=== PATIENT | female | born 1995 | race Caucasian/White ===

== ENCOUNTER 2017-07-06 14:54 | Emergency (ER) | payer OTHER, SELFPAY ==
[2017-07-06 15:20] VITALS: BP 151/90; PULSE 128; RESP 20; TEMP 36.8; O2SAT 97; BMI 41.5
--- NOTE | 2017-07-06 15:42 | HMH.EDUTC ---
[facility] [place] Dis[place] Clinical Impression: URI (upper respiratory infection) Qualifiers: URI type: unspecified URI Qualified Code(s): J06.9 - Acute upper respiratory infection, unspecified Disposition: Home, Self-Care Condition on Discharge: Good Instructions: Strep Throat, Sore Throat Additional Instructions: * Monitor Temp. Tylenol and/or Ibuprofen as needed. ER if fever is no less than 101 despite alternating Tylenol and Ibuprofen * Encourage fluids, water, Gatorade, powerade, pedialyte if infant/toddler/or child * Warm salt water gargles for throat irritation *Warm fluids *Sore throat lozenges *Sleep elevated *humidifier or vaporizer Lots of rest Increase fluids, water, Gatorade, powerade *Flonase 2 sprays each nostril daily but may take 2-3 days to notice improvement with it *Bromfed may cause drowsiness. Know how it effect you or your child. Before driving, caring for small children or sending your child to school *Your throat swab was sent to lab for culture. Those results area typically sent to your primary care physician. Be sure to follow up in 2-3 days if no improvement so they can review those results and treat if necessary If you dont have primary care I recommend you get one, but in the mean time you will have to return to a walk in clinic Follow up IMMEDIATELY for new or worsening of symptoms OR no noticeable improvement over the next 48-72 hours. 911 immediately for any life threatening symptoms such as chest pain or difficulty breathing Prescriptions: Brompheniramine/Pseudoephed/Dm [Bromfed DM Cough Syrup 5mL] 10 ml PO Q4HP PRN #350 ml PRN Reason: Cough Azithromycin [Z-Rc 250mg Tab] 250 mg PO UD DOSE PK #6 tab Fluticasone Propionate [Flonase 50mcg nasal spray 16gm] 2 spr NS DAILY #1 bottle predniSONE [Prednisone 5mg Tab Dose-Pack] 5 mg PO UD DOSE PK #21 pack Referrals: Candis Bay APRN [Primary Care Provider] - Forms: Work/School Release Time of Disposition: 15:56 Medical Decision Making - Medical Records Medical records reviewed: Yes: I reviewed the patient's medical records. - Alfredo Inquiry Pt receiving controlled substance: No Alfredo was queried for this patient: No Vital Signs: 07/06/17 15:20 Temperature 98.2 F Temperature Source Temporal Artery Scan Pulse Rate [Right Brachial] 128 H Respiratory Rate 20 Blood Pressure [Right Arm] 151/90 Blood Pressure Mean [Right Arm] 110 Blood Pressure Source [Right Arm] Automatic Cuff Blood Pressure Position [Right Arm] Sitting 02 Sat by Pulse Oximetry 97 Oxygen Delivery Method Room Air - Lab Data Lab results reviewed: Yes: I reviewed the patient's lab results. - Reevaluation(s) Time: 15:52 Reevaluation #1: Patient had rapid strep test showed negative result however patients throat presented like that of strep Tonsils red, swollen with mild exudate noted therefore will treat patient for strep even thought negative rapid test result [facility] [place] HPI - General Stated complaint: sore throat ear ache fever Time Seen by Provider: 07/06/17 15:40 Mode of Arrival: Family Vehicle Source of Information: Patient, Parent(s) Limitations: No Limitations Description of Symptoms (Recalled from Triage Doc. by RN): C/O SORE THROAT, FEVER AND BILATERAL EAR PAIN HEENT Symptoms (Recalled from RN notes): Yes Resp Symptoms (Recalled from RN notes): Yes Skin Symptoms (Recalled from RN notes): No MS Symptoms (Recalled from RN notes): No Functional Status (Recalled from RN notes): N/A - History of Present Illness Provider Complaint: Patient state that she has had sore throat, cough, bilateral ear pain and nasal congestion along with low grade fever since Friday Mother state that she has been laying around and complaining that her throat hurts State that she use to have strep throat frequently and she works at a [employer] so she was worried that she may have caught something - Related Data Home Medications Medication Instructions Recorded Terrence Benavides
--- NOTE | 2017-07-06 15:48 | ED_ITS ---
[facility] [place] Clinical Impression: URI (upper respiratory infection) Qualifiers: URI type: unspecified URI Qualified Code(s): J06.9 - Acute upper respiratory infection, unspecified Disposition: Home, Self-Care Condition on Discharge: Good Instructions: Strep Throat, Sore Throat Additional Instructions: * Monitor Temp. Tylenol and/or Ibuprofen as needed. ER if fever is no less than 101 despite alternating Tylenol and Ibuprofen * Encourage fluids, water, Gatorade, powerade, pedialyte if infant/toddler/or child * Warm salt water gargles for throat irritation *Warm fluids *Sore throat lozenges *Sleep elevated *humidifier or vaporizer Lots of rest Increase fluids, water, Gatorade, powerade *Flonase 2 sprays each nostril daily but may take 2-3 days to notice improvement with it *Bromfed may cause drowsiness. Know how it effect you or your child. Before driving, caring for small children or sending your child to school *Your throat swab was sent to lab for culture. Those results area typically sent to your primary care physician. Be sure to follow up in 2-3 days if no improvement so they can review those results and treat if necessary If you don? t have primary care I recommend you get one, but in the mean time you will have to return to a walk in clinic Follow up IMMEDIATELY for new or worsening of symptoms OR no noticeable improvement over the next 48-72 hours. 911 immediately for any life threatening symptoms such as chest pain or difficulty breathing Prescriptions: Brompheniramine/Pseudoephed/Dm [Bromfed DM Cough Syrup 5mL] 10 ml PO Q4HP PRN # 350 ml PRN Reason: Cough Azithromycin [Z-Rc 250mg Tab] 250 mg PO UD DOSE PK #6 tab Fluticasone Propionate [Flonase 50mcg nasal spray 16gm] 2 spr NS DAILY #1 bottle predniSONE [Prednisone 5mg Tab Dose-Pack] 5 mg PO UD DOSE PK #21 pack Referrals: Candis Bay APRN [Primary Care Provider] - Forms: Work/School Release Time of Disposition: 15:56 Medical Decision Making - Medical Records Medical records reviewed: Yes: I reviewed the patient's medical records. - Alfredo Inquiry Pt receiving controlled substance: No Alfredo was queried for this patient: No Vital Signs: 07/06/17 15:20 Temperature 98.2 F Temperature Source Temporal Artery Scan Pulse Rate [Right Brachial] 128 H Respiratory Rate 20 Blood Pressure [Right Arm] 151/90 Blood Pressure Mean [Right Arm] 110 Blood Pressure Source [Right Arm] Automatic Cuff Blood Pressure Position [Right Arm] Sitting 02 Sat by Pulse Oximetry 97 Oxygen Delivery Method Room Air - Lab Data Lab results reviewed: Yes: I reviewed the patient's lab results. - Reevaluation(s) Time: 15:52 Reevaluation #1: Patient had rapid strep test showed negative result however patients throat presented like that of strep Tonsils red, swollen with mild exudate noted therefore will treat patient for strep even thought negative rapid test result [facility] [place] - General Stated complaint: sore throat ear ache fever Time Seen by Provider: 07/06/17 15:40 Mode of Arrival: Family Vehicle Source of Information: Patient, Parent(s) Limitations: No Limitations Description of Symptoms (Recalled from Triage Doc. by RN): C/O SORE THROAT, FEVER AND BILATERAL EAR PAIN HEENT Symptoms (Recalled from RN notes): Yes Resp Symptoms (Recalled from RN notes): Yes Skin Symptoms (Recalled from RN notes): No MS Symptoms (Recalled from RN notes): No Functional Status (Recalled from RN notes): N/A
[2017-07-06 15:54] LABS: UTC Influenza A Antigen Negative (Negative); UTC Influenza B Antigen Negative (Negative); UTC Strep Screen (Rapid) Negative (Negative)
[2017-07-06 15:58] VITALS: BP 150/88; PULSE 120; RESP 20; TEMP 36.8; O2SAT 98
== END 2017-07-06 16:02 | disposition home or self-care (01) ==
PROVIDERS: Emergency Provider Nurse Practitioner; Family Provider Nurse Practitioner; PCP Nurse Practitioner
DX: J06.9 Acute upper respiratory infection, unspecified (principal)
CPT/HCPCS: 87804; 87880; 99202

== ENCOUNTER → 2017-08-12 10:36 | Outpatient (POV) | payer OTHER, SELFPAY | PROVIDERS: Visit Provider Otolaryngology | DX: Z00.00 Encounter for general adult medical examination without abnormal findings (principal) ==

== ENCOUNTER → 2018-10-06 16:07 | Outpatient (CLI) | payer OTHER, SELFPAY ==
[2018-10-13 18:24] LABS: Ammonium acid urate 10 % (.); Calcium phosphate 65 % (.)
[2018-10-14 17:47] LABS: Specimen Type Comment: (.)
== END ==
PROVIDERS: Visit Provider Urology
DX: N20.0 Calculus of kidney (principal)
CPT/HCPCS: 82370

== ENCOUNTER → 2019-03-09 11:49 | Outpatient (CLI) | payer OTHER, SELFPAY ==
--- NOTE | 2019-03-09 11:53 | XR_ITS ---
PROCEDURE: XR KUB CLINICAL INDICATION: KIDNEY STONE Follow-up kidney stones COMPARISON: ABDPELWO CT abdomen pelvis wo con from 09/29/2018 FINDINGS: Gas pattern-The bowel gas pattern is unremarkable. No obvious obstruction. Calcifications-No abnormal calcifications are evident. No obvious renal or ureteral calculi. Bones-No acute bony anomalies evident. IMPRESSION: No acute findings. Dictated by: Michael Dyer MD 03/09/2019 15:32 Electronically signed by Michael Dyer MD in [place] 03/09/2019 15:32
== END ==
PROVIDERS: PCP Family Medicine; Visit Provider Urology
DX: N20.0 Calculus of kidney (principal)
CPT/HCPCS: 74018

== ENCOUNTER → 2019-03-26 12:45 | Outpatient (CLI) | payer OTHER, SELFPAY ==
--- NOTE | 2019-03-26 12:48 | CT_ITS ---
PROCEDURE: CT ABDOMEN PELVIS WO CON CLINICAL INDICATION: flank pain Bilateral flank pain the COMPARISON: ABDPELWO CT abdomen pelvis wo con from 09/29/2018 TECHNIQUE: Axial images obtained with sagittal and coronal reformats. All CT scans at the facility use one or more dose reduction, viz: automated exposure control, ma/kV adjustment per patient size (including targeted exams where dose is matched to indication, i.e. head), or iterative reconstruction technique. FINDINGS: LOWER THORAX: No acute finding ABDOMEN & PELVIS: The liver, gallbladder, adrenal glands and pancreas have an unremarkable appearance. There is mild splenomegaly at 14 cm. There is a nonobstructing 4 mm stone in the mid polar region of the right kidney. No hydronephrosis. No ureteral calculi. No evidence of appendicitis or diverticulitis. There is a 3 cm right ovarian cyst. No pelvic mass abnormal fluid collection or focal inflammatory change of the pelvis. No acute bony anomalies. IMPRESSION: 1. Nonobstructing right nephrolithiasis. 2. 3 cm right ovarian cyst Dictated by: Michael Dyer MD 03/26/2019 17:32 Electronically signed by Michael Dyer MD in [place] 03/27/2019 08:22
== END ==
PROVIDERS: PCP Nurse Practitioner; Visit Provider Urology
DX: N20.0 Calculus of kidney (principal)
CPT/HCPCS: 74176

== ENCOUNTER → 2020-01-17 09:44 | Outpatient (CLI) | payer MEDICAID, SELFPAY ==
--- NOTE | 2020-01-17 09:48 | XR_ITS ---
PROCEDURE: XR ANKLE WT BEARING LT MIN 3V CLINICAL INDICATION: ankle pain Foot pain COMPARISON: CR XR FOOT WT BEARING RT 3V from 01/17/2020 CR XR FOOT WT BEARING LT 3V from 01/17/2020 FINDINGS: No fracture or dislocation. No lytic or blastic change. There is normal mineralization. The joint spaces are well-preserved. No significant degenerative/arthritic changes. No erosive changes evident. Other findings:There is a prominent os trigonum. Type 1 os navicularis. IMPRESSION: No acute findings. Dictated by: Michael Dyer MD 01/17/2020 10:30 Michael Dyer MD in [place] 01/17/2020 10:30
--- NOTE | 2020-01-17 09:48 | XR_ITS ---
PROCEDURE: XR ANKLE WT BEARING RT MIN 3V CLINICAL INDICATION: ankle pain COMPARISON: No exams were available for comparison FINDINGS: No fracture or dislocation. No lytic or blastic change. There is normal mineralization. The joint spaces are well-preserved. No significant degenerative/arthritic changes. No erosive changes evident. Other findings:There is a prominent os trigonum. IMPRESSION: No acute findings. Dictated by: Michael Dyre MD 01/17/2020 10:28 Michael Dyer MD in [place] 01/17/2020 10:28
--- NOTE | 2020-01-17 09:48 | XR_ITS ---
PROCEDURE: XR FOOT WT BEARING RT 3V CLINICAL INDICATION: foot pain COMPARISON: No exams were available for comparison FINDINGS: No fracture or dislocation. No lytic or blastic change. There is normal mineralization. The joint spaces are well-preserved. No significant degenerative/arthritic changes. No erosive changes evident. Other findings:Prominent os trigonum IMPRESSION: No acute findings. Dictated by: Michael Dyer MD 01/17/2020 10:28 Michael Dyer MD in [place] 01/17/2020 10:28
== END ==
PROVIDERS: PCP Nurse Practitioner; Visit Provider Podiatrist
DX: M79.671 Pain in right foot (principal); M25.571 Pain in right ankle and joints of right foot; M79.672 Pain in left foot; M25.572 Pain in left ankle and joints of left foot
CPT/HCPCS: 73610; 73630

== ENCOUNTER 2020-05-01 14:00 | Outpatient (RCR) | payer MEDICAID, OTHER, SELFPAY ==
--- NOTE | 2020-03-03 11:45 | HMH.PTOPEV ---
PT Outpatient Evaluation Rehab PT Outpatient Evaluation Start: 03/03/20 11:29 Freq: Status: Active Protocol: Document 03/03/20 11:29 RONEY (Rec: 03/03/20 11:45 RONEY [id number]) Electronically Signed By Sergio Villasenor, PT 03/03/20 11:29 Outpatient Therapy Subjective History Subjective History Patient is a 24 year old female presenting to outpatient PT with reports of chronic foot/ankle pain starting approximately 3 years ago of insidious onset. Most recent foot/ankle imaging negative. Patient referred for B ankle instability and posterior-tibialis tendonitis. Comorbities include HTN and elevated BMI. Chief Complaint Pain,Stiff,Swelling Symptom Type Sharp Symptoms Relieved By Rest/Positioning,OTC Meds Prior Functional Limitations None Current Functional Limitations Housework,Standing,Recreation Activity,Walking,Stairs, Balance Symptom Description Intermittent Level of pain today (0-10) 0 Pain scale - at its best (0-10) 0 Pain scale - at its worst (0-10) 5 Ankle/Foot Eval Gait Observation General Gait Pattern Observation No Deviations/Normal Assistive Device Ambulation Assistive Device None Palpation Tenderness bilateral Ankle/Foot Palpation Findings Tenderness Ankle/Foot Palpation Overall Comment Post-tib mid sub, peroneal mm 2/4 ROM left Ankle/Foot Dorsiflexion w/Knee Extended -3 Active Range Motion (degrees) Ankle/Foot Dorsiflexion w/Knee Extended 0 Passive Range (degrees) Ankle/Foot Plantar Flexion Active Range WNL of Motion (degrees) Ankle/Foot Eversion Active Range of 12 Motion (degrees) Ankle/Foot Eversion Passive Range of 17 Motion (degrees) Ankle/Foot Inversion Active Range of 19 Motion (degrees) Ankle/Foot Inversion Passive Range of 22 Motion (degrees) Great Toe ROM Reason Not Measured Within Functional Limits right Ankle/Foot Dorsiflexion w/Knee Extended -3 Active Range Motion (degrees) Ankle/Foot Dorsiflexion w/Knee Extended 0 Passive Range (degrees) Ankle/Foot Plantar Flexion Active Range WNL of Motion (degrees) Ankle/Foot Eversion Active Range of 7 Motion (degrees) Ankle/Foot Eversion Passive Range of 10 Motion (degrees) Ankle/Foot Inversion Active Range of 22 Motion (degrees) Ankle/Foot Invers
== END 2020-06-08 08:33 | disposition home or self-care (01) ==
LOC: PT.CARL 14:00
PROVIDERS: PCP Nurse Practitioner; Visit Provider Podiatrist
DX: M25.372 Other instability, left ankle; M25.371 Other instability, right ankle; M76.822 Posterior tibial tendinitis, left leg; M76.821 Posterior tibial tendinitis, right leg
CPT/HCPCS: 97010; 97014; 97033; 97110; 97112; 97140; 97163; 97164; 97760; G0283

== ENCOUNTER → 2020-05-04 10:20 | Outpatient (CLI) | payer OTHER, SELFPAY ==
[2020-05-04 12:03] LABS: Coronavirus 19 IgG Antibody Positive (Negative); Coronavirus 19 IgM Antibody Negative (Negative)
== END ==
PROVIDERS: Nurse Practitioner; Visit Provider Family Medicine
DX: Z20.822 Contact with and (suspected) exposure to COVID-19 (principal); Z86.16 Personal history of COVID-19
CPT/HCPCS: 36415; 86328

== ENCOUNTER → 2020-09-14 13:48 | Outpatient (CLI) | payer OTHER, SELFPAY ==
--- NOTE | 2020-09-14 13:52 | XR_ITS ---
PROCEDURE: XR KUB CLINICAL INDICATION: kidney stone COMPARISON: CT CT ABDOMEN PELVIS WO CON from 03/26/2019 FINDINGS: Gas pattern-The bowel gas pattern is unremarkable. No obvious obstruction. Calcifications-No abnormal calcifications are evident. No obvious renal or ureteral calculi. Bones-No acute bony anomalies evident. IMPRESSION: No acute findings. Dictated by: Michael Dyer MD 09/14/2020 14:50 Michael Dyer MD in [place] 09/14/2020 14:50
== END ==
PROVIDERS: PCP Family Medicine; Visit Provider Urology
DX: N20.0 Calculus of kidney (principal)
CPT/HCPCS: 74018

== ENCOUNTER → 2021-05-22 07:18 | Outpatient (CLI) | payer OTHER, SELFPAY ==
--- NOTE | 2021-05-22 07:22 | CT_ITS ---
FINAL REPORT TECHNIQUE: Thin section axial CT images of the facial bones and sinuses were obtained without contrast. Coronal reformatted images were also obtained. This study was performed with techniques to keep radiation doses as low as reasonably achievable, (ALARA). Individualized dose reduction techniques using automated exposure control or adjustment of mA and/or kV according to the patient's size were employed. CLINICAL HISTORY: RECURRENT SINUSITIS x several years FINDINGS: CT SINUSES There is no evidence of mucosal thickening. No fluid levels are identified. The ostiomeatal units have an unremarkable appearance. The nasal septum is in the midline. No fracture or acute bony abnormality is identified. IMPRESSION: No focal abnormality identified of the sinuses. Reviewed, Interpreted and Dictated by Adalid Singh III, MD Transcribed by Sherrie Spencer Authenticated by Adalid Singh III, MD on 05/22/2021 09:08:06 AM [facility]
== END ==
PROVIDERS: PCP Internal Medicine Adolescent Medicine; Visit Provider Allergy & Immunology Allergy
DX: J01.90 Acute sinusitis, unspecified (principal)
CPT/HCPCS: 70486

== ENCOUNTER → 2021-06-07 15:16 | Outpatient (CLI) | payer OTHER, SELFPAY ==
[2021-06-07 17:33] LABS: Alanine Aminotransferase 38 U/L (12-78); Albumin Level 5.1 g/dl (3.5-5.0); Albumin/Globulin Ratio 1.9 (1.1-1.8); Alkaline Phosphatase 75 U/L (38-126); Anion Gap 15.4 mEq/L (5-15); Aspartate Amino Transferase 29 U/L (14-36); Bilirubin,Total 0.6 mg/dl (0.2-1.3); Blood Urea Nitrogen 9 mg/dl (7-17); Calcium 9.7 mg/dl (8.4-10.2); Carbon Dioxide 23 mmol/L (22.0-30.0); Chloride 105 mmol/L (98-107); Chol/HDL Ratio 4.5 (1-3.5); Cholesterol 188 mg/dl (140-200); Estimated Glomerular Filt Rate 153 ml/min (>60); GFR (African American) 185 ML/MIN (>60); Globulin 2.7 g/dL (1.3-3.2); Glucose 89 mg/dl (74-100); HDL Cholesterol 42 mg/dl (40-60); Potassium 4.4 mmoL/L (3.5-5.1); Sodium 139 mmol/L (136-145); Total Protein,Serum 7.8 g/dl (6.3-8.2); Triglycerides 216 mg/dl (30-150); Uric Acid 4.6 mg/dl (2.5-6.2); VLDL Cholesterol 43 mg/dL (0-40)
[2021-06-07 17:46] LABS: Direct LDL Cholesterol 106.43 mg/dL (100-129)
[2021-06-07 18:08] LABS: Thyroid Stimulating Hormone 1.28 uIU/mL (0.465-4.68)
== END ==
PROVIDERS: PCP Internal Medicine Adolescent Medicine; Visit Provider Nurse Practitioner Family
DX: Z00.00 Encounter for general adult medical examination without abnormal findings (principal); E03.9 Hypothyroidism, unspecified; I10 Essential (primary) hypertension; N20.0 Calculus of kidney
CPT/HCPCS: 36415; 80053; 80061; 84443; 84550

== ENCOUNTER → 2021-09-14 14:41 | Outpatient (CLI) | payer OTHER, SELFPAY ==
--- NOTE | 2021-09-14 14:55 | XR_ITS ---
FINAL REPORT CLINICAL HISTORY: History of kidney stones COMPARISON: 09/14/2020 FINDINGS: A single view of the abdomen was obtained. There is a nonobstructive bowel gas pattern. There is a moderate amount of retained stool in the colon. An IUD is seen in the mid pelvis. There are no abnormally dilated loops of small bowel. There are no abnormal calcifications. IMPRESSION: Nonobstructive bowel gas pattern. Reviewed, Interpreted and Dictated by Adalid Singh III, MD Transcribed by Kari Gaitan Authenticated and . [facility]
== END ==
LOC: RAD 14:42
PROVIDERS: PCP Internal Medicine Adolescent Medicine; Visit Provider Urology
DX: N20.0 Calculus of kidney (principal)
CPT/HCPCS: 74018

== ENCOUNTER 2021-10-24 23:21 | Emergency (ER) | payer OTHER, SELFPAY ==
[2021-10-24 23:23] VITALS: BP 122/70; PULSE 81; RESP 18; TEMP 37.2; O2SAT 97; BMI 41.9
--- NOTE | 2021-10-24 23:56 | PC.NURSE ---
LAB at for blood draw
--- NOTE | 2021-10-25 00:02 | PC.NURSE ---
2340:Instructed patient to fill out exposure evaluation form and return to [employer]. Also, instructed patient she will need to fill out an incident in [employer].
[2021-10-25 00:16] LABS: Alanine Aminotransferase 26 U/L (12-78); Albumin Level 4.4 g/dl (3.5-5.0); Alkaline Phosphatase 74 U/L (38-126); Aspartate Amino Transferase 23 U/L (14-36)
[2021-10-25 00:18] LABS: Basophils # 0.2 K/mm3 (0-0.2); Eosinophils # 0.3 K/mm3 (0.0-0.4); Eosinophils % 3.6 % (0.1-12.0); Hematocrit 43.3 % (37.0-47.0); Hemoglobin 14.1 g/dL (12.2-16.2); Lymphocytes # 2.4 K/mm3 (0.7-4.5); Mean Corpuscular HGB Conc 32.6 g/dL (31.8-35.4); Mean Corpuscular Hemoglobin 29.9 pg (27.0-31.2); Mean Corpuscular Volume 91.9 fl (81-99); Mean Platelet Volume 9.2 fl (7.4-10.4); Monocytes # 0.5 K/mm3 (0.1-1.0); Monocytes % 5.4 % (1.7-9.3); Neutrophils # 5.3 K/mm3 (1.8-7.8); Platelet Count 293 K/mm3 (142-424); Red Blood Count 4.72 M/mm3 (4.20-5.40); Red Cell Distribution Width 13.6 % (11.5-17.5); White Blood Count 8.7 K/mm3 (4.8-10.8)
[2021-10-25 00:19] LABS: INR 0.88 (0.9-1.1)
[2021-10-25 00:30] VITALS: BP 124/74; PULSE 80; RESP 18; TEMP 37.1; O2SAT 99
--- NOTE | 2021-10-25 00:56 | HMH.EDSKAF ---
ED Disposition Clinical Impression: Needle stick injury of finger of left hand Disposition: Home, Self-Care Condition on Discharge: Good Instructions: DI for Puncture Wound Additional Instructions: follow up with [facility] Referrals: Ester Javed APRN [Primary Care Provider] - - Critical Care Critical Care Time: No Attestation: On 10/24/21, the high probability of a clinically significant, sudden or life threatening deterioration of the following system(s) required my full and direct attention, intervention and personal management. The time I documented below is in addition to time spent performing reported procedures but includes the following listed in this critical care notation. Medical Decision Making - Medical Records Medical records reviewed: Yes: I reviewed the patient's medical records. - Alfredo Inquiry Pt receiving controlled substance: No Vital Signs: 10/24/21 23:23 10/25/21 00:30 Temperature 99.0 F 98.7 F Temperature Source Oral Oral Pulse Rate 80 Pulse Rate [Right] 81 Respiratory Rate 18 18 Blood Pressure 124/74 Blood Pressure [Right Arm] 122/70 Blood Pressure Mean [Right Arm] 87 02 Sat by Pulse Oximetry 97 - Lab Data Lab results reviewed: Yes: I reviewed the patient's lab results. Lab Results 10/24/21 23:53: WBC 8.7, RBC 4.72, Hgb 14.1, Hct 43.3, MCV 91.9, MCH 29.9, MCHC 32.6, RDW 13.6, Plt Count 293, MPV 9.2, Neut % (Auto) 61.0, Lymph % (Auto) 28.0, Rice % (Auto) 5.4, Eos % (Auto) 3.6, Baso % (Auto) 2.0, Neut # (Auto) 5.3, Lymph # (Auto) 2.4, Rice # (Auto) 0.5, Eos # (Auto) 0.3, Baso # (Auto) 0.2 10/24/21 23:53: PT 10.0 L, INR 0.88 L, APTT 25.0 10/24/21 23:53: Conjugated Bilirubin 0.0, Unconjugated Bilirubin 0.3, AST 23, ALT 26, Alkaline Phosphatase 74, Total Protein 7.0, Albumin 4.4 Result diagrams: 10/24/21 23:53 Orders (Tests/Meds): ORDERS Category Date Time Status HBsAg Screen Stat Lab 10/24/21 23:53 Received HIV Panel [id number] Stat Lab 10/24/21 23:53 Received Hepatitis B Surf Ab Quant Stat Lab 10/24/21 23:53 Received Hepatitis C Antibody Stat Lab 10/24/21 23:53 Received Hepatitis Panel (4) Stat Lab 10/24/21 23:53 Received Liver Panel Stat Lab 10/24/21 23:53 Results Medical Decision Narrative: known source and scot proceed with hospital protocol Skin/Abscess/FB HPI - General Chief complaint: Wound/Laceration Stated complaint: needle stick w/c 2245 Time Seen by Provider: 10/25/21 00:00 Mode of Arrival: Ambulatory Source of Information: Patient, Medical Record Limitations: No Limitations Description of Symptoms (Recalled from ER Triage Doc. by RN): pt states was stuck by a dirty ABG needle while completing ABG - History of Present Illness HPI narrative: needle stick finger - known source MD complaint: other (needle stick) Onset (ago): minute(s) Tetanus up to date: yes Location: L hand Severity: mild Associated symptoms: denies other symptoms Treatments prior to arrival: none - Related Data Home Medications Medication Instructions Recorded Confirmed Propranolol HCl [Inderal 20mg 20 mg PO BID 07/06/17 09/14/21 tablet] cetirizine 10 mg capsule 10 mg PO DAILY 04/23/18 09/14/21 allopurinol 300 mg tablet 300 mg PO DAILY 01/17/20 09/14/21 dicyclomine 10 mg capsule 10 mg PO TID 01/17/20 09/14/21 sertraline 50 mg tablet 50 mg PO DAILY 01/17/20 09/14/21 buspirone 10 mg tablet 10 mg PO tab 05/08/20 09/14/21 levothyroxine 50 mcg tablet 50 mcg PO tab 05/08/20 09/14/21 montelukast 10 mg tablet 10 mg PO tab 05/08/20 09/14/21 copper 380 square mm intrauterine INTRAUTERI 11/13/20 09/14/21 device Previous Rx's Medication Instructions Recorded Fluticasone Propionate [Flonase 2 spr NS DAILY #1 bottle 07/06/17 50mcg nasal spray 16gm] diclofenac sodium 1 % topical gel 4 g TOPICAL QID PRN #30 g 01/17/20 meloxicam 7.5 mg tablet 7.5 mg PO ONCE #30 tab 06/19/20 Allergies Allergy/AdvReac Type Severity Reaction Status Date / Lalo
[2021-10-25 01:37] LABS: Bilirubin,Direct 0.2 mg/dl (0.0-0.4); Bilirubin,Indirect 0.1 mg/dL (0.0-0.9); Bilirubin,Total 0.3 mg/dl (0.2-1.3)
[2021-10-25 01:38] LABS: Bilirubin,Unconjugated 0.2 mg/dL (0.0-1.1)
[2021-10-26 07:12] LABS: HIV Screen 4th Generation wRfx Non Reactive (Non Reactive); Hepatitis B Surf Ab Quant 28.8 mIU/mL (Immunity>9.9)
[2021-11-02 22:35] LABS: Hep A Ab, IgM NEGATIVE; Hepatitis B Core Antibody IgM NEGATIVE; Hepatitis B Surface Antigen NEGATIVE; Hepatitis C Antibody 0.2
== END 2021-10-25 00:30 | disposition home or self-care (01) ==
PROVIDERS: Emergency Provider Emergency Medicine; PCP Nurse Practitioner Family
DX: S61.231A Puncture wound without foreign body of left index finger without damage to nail, initial encounter (principal); W46.1XXA Contact with contaminated hypodermic needle, initial encounter; Y93.89 Activity, other specified; Y99.0 Civilian activity done for income or pay; Z79.899 Other long term (current) drug therapy; I10 Essential (primary) hypertension; E03.9 Hypothyroidism, unspecified; F41.9 Anxiety disorder, unspecified; F32.A Depression, unspecified; Z87.442 Personal history of urinary calculi
CPT/HCPCS: 80074; 80076; 85025; 85610; 85730; 86703; 86706; 99282; G0432

== ENCOUNTER 2022-04-01 15:12 | Emergency (ER) | payer OTHER, SELFPAY ==
[2022-04-01 15:13] VITALS: BP 139/94; PULSE 110; RESP 16; TEMP 37.2; O2SAT 98; BMI 41.9
--- NOTE | 2022-04-01 16:49 | PC.NURSE ---
Brought pt into ED triage room and obtained v/s which were 158/94, HR 96, RR 16, O2sats on room air 98%, and temp 98.0 Pt advised she woke up feeling bad this am with diarrhea. Advised pt we would get her back into a room as soon as we could. ED room not available at this time due to increased volume.
[2022-04-01 21:36] LABS: Microscopic, Urine URINE MICROSCOPIC (MICROSCOPIC)
[2022-04-01 21:38] LABS: Basophils # 0.1 K/mm3 (0-0.2); Basophils % 0.5 % (0.1-2.0); Eosinophils # 0.2 K/mm3 (0.0-0.4); Eosinophils % 1.4 % (0.1-12.0); Hematocrit 47.7 % (37.0-47.0); Hemoglobin 16.7 g/dL (12.2-16.2); Lymphocytes # 0.9 K/mm3 (0.7-4.5); Lymphocytes % 7.8 % (10-50); Mean Corpuscular HGB Conc 34.9 g/dL (31.8-35.4); Mean Corpuscular Hemoglobin 29.8 pg (27.0-31.2); Mean Corpuscular Volume 85.2 fl (81-99); Mean Platelet Volume 8.6 fl (7.4-10.4); Monocytes # 0.4 K/mm3 (0.1-1.0); Neutrophils # 10.1 K/mm3 (1.8-7.8); Neutrophils % 87.2 % (37.0-80.0); Platelet Count 355 K/mm3 (142-424); Red Cell Distribution Width 12.8 % (11.5-17.5); White Blood Count 11.5 K/mm3 (4.8-10.8)
[2022-04-01 21:39] LABS: Appearance,Urine CLOUDY (Clear); Blood, Urine 1+ (Negative); Color,Urine YELLOW (Yellow); Glucose,Urine (UA) Negative (Negative); Ketones,Urine TRACE (Negative); Leukocyte Esterase,Urine TRACE (Negative); Nitrate,Urine Negative (Negative); Protein,Urine 2+ (Negative); Specific Gravity, Urine >= 1.030 (1.005-1.030); Urobilinogen,Urine 0.2 EU/dl (0.2)
[2022-04-01 21:40] LABS: Urine Pregnancy, HCG Qual. Negative (Negative)
[2022-04-01 21:43] LABS: Bilirubin,Urine 1+ (Negative)
[2022-04-01 21:46] LABS: Alanine Aminotransferase 34 U/L (12-78); Albumin Level 5.4 g/dl (3.5-5.0); Albumin/Globulin Ratio 1.4 (1.1-1.8); Alkaline Phosphatase 112 U/L (38-126); Aspartate Amino Transferase 26 U/L (14-36); Bacteria,Urine Trace /lpf; Bilirubin,Total 0.7 mg/dl (0.2-1.3); Blood Urea Nitrogen 13 mg/dl (7-17); Calcium 10.3 mg/dl (8.4-10.2); Carbon Dioxide 23 mmol/L (22.0-30.0); Creatinine Clearance Estimated 102 mL/min (50-200); Estimated Glomerular Filt Rate 88 ml/min (>60); GFR (African American) 107 ML/MIN (>60); Globulin 3.8 g/dL (1.3-3.2); Glucose 105 mg/dl (74-100); Potassium 3.6 mmoL/L (3.5-5.1); Sodium 138 mmol/L (136-145); Total Protein,Serum 9.2 g/dl (6.3-8.2)
[2022-04-01 21:48] LABS: Coronavirus 19, PCR Not Detected (NotDetected); Influenza A, PCR Not Detected (NotDetected); Influenza B, PCR Not Detected (NotDetected); MANUAL DIFFERENTIAL MANUAL DIFFERENTIAL (MANUAL DIFF)
[2022-04-01 21:52] LABS: C-Reactive Protein 33.1 mg/L (0-4)
[2022-04-01 22:02] LABS: Procalcitonin 0.212 ng/mL (0.0-2.0)
--- NOTE | 2022-04-01 22:32 | HMH.EDNVD ---
Discharge Plan Disposition Patient Disposition: Home, Self-Care Chief Complaint: Nausea/Vomiting/Diarrhea Prescriptions Prescriptions: No Action allopurinol 300 mg tablet 300 mg PO DAILY dicyclomine 10 mg capsule 10 mg PO QID buspirone 10 mg tablet 10 mg PO BID levothyroxine 50 mcg tablet 50 mcg PO DAILY montelukast 10 mg tablet 10 mg PO DAILY PRN sertraline 100 mg tablet 100 mg PO DAILY ipratropium bromide 21 mcg (0.03 %) spray,non-aerosol 2 spray intranasal BID PRN Rx Instructions: administer into each nostril amoxicillin 500 mg tablet 500 mg PO TID Qty: 30 0RF All Day Allergy (cetirizine) 10 mg capsule 10 mg PO DAILY [employer] T 380A 380 square mm intrauterine device INTRAUTERI propranolol 20 MG tablet 20 mg PO BID fluticasone propionate 120 SPR/BOT bottle 2 spr NS DAILY Qty: 1 0RF Referrals Follow up/Referrals: Shad Singh MD [Primary Care Provider] - See instructions Clinical Impressions Clinical Impression: Enteritis due to Norovirus Instructions Patient Instructions: DI for Norovirus Infection Discharge ED Provider: Pedro Luis Butcher Nausea/Vomiting/Diarrhea HPI General Chief complaint: Nausea/Vomiting/Diarrhea Stated complaint: admonial pain and passed out Time Seen by Provider: 04/01/22 22:32 Mode of Arrival: Ambulatory Source of Information: Patient, Relative and Medical Record Limitations: No Limitations Description of Symptoms (Recalled from ER Triage Doc. by RN): pt c/o N/V/D and passed out while on toilet. pt denies any abd rolando History of Present Illness HPI Narrative: vomiting and diarrhea w/o blood which started this am - no foreign travel,no raw food and no farm animals and no def contacts and has watery stool with episode of passed out on toiley at 1600 complaint: nausea, vomiting and diarrhea Onset (ago): hour(s) Description of Diarrhea: water Associated Abdominal Pain: Yes Location of pain: diffuse Severity: moderate Quality: cramping Consistency: intermittent Associated symptoms: syncope Related Data Home Medications Medication Instructions Recorded Confirmed propranolol 20 mg tablet 20 mg PO BID HTN 07/06/17 02/18/22 cetirizine 10 mg capsule (All Day 10 mg PO DAILY 04/23/18 02/18/22 Allergy (cetirizine)) allopurinol 300 mg tablet 300 mg PO DAILY 01/17/20 02/18/22 copper 380 square mm intrauterine intrauterine 11/13/20 02/18/22 device (Para[employer]ard T 380A) buspirone 10 mg tablet 10 mg PO BID 02/18/22 02/18/22 dicyclomine 10 mg capsule 10 mg PO QID 02/18/22 02/18/22 ipratropium bromide 21 mcg (0.03 2 spray intranasal BID PRN 02/18/22 02/18/22 %) nasal spray levothyroxine 50 mcg tablet 50 mcg PO DAILY 02/18/22 02/18/22 montelukast 10 mg tablet 10 mg PO DAILY PRN 02/18/22 02/18/22 sertraline 100 mg tablet 100 mg PO DAILY 02/18/22 02/18/22 Previous Rx's Medication Instructions Recorded fluticasone propionate 50 2 spr intranasal DAILY ##1 07/06/17 mcg/actuation nasal spray,suspension amoxicillin 500 mg tablet 500 mg PO TID #30 tabs 02/18/22 Allergies Allergy/AdvReac Type Severity Reaction Status Date / Time No Known Allergies Allergy Verified 02/18/22 15:36 [facility] Disclaimer: The information contained in this section may have been updated after the patient was seen, as this information can be updated by other users. Medical History (Updated 04/02/22 @ 01:37 by Pedro Luis Butcher MD) Anxiety Depression Hypertension Hypothyroidism IBS (irritable bowel syndrome) Seasonal allergies Family History (Updated 02/18/22 @ 15:40 by Rand Aguillon LPN) Diabetes Father Hypertension Father Social History (Updated 02/18/22 @ 15:40 by Rand Aguillon LPN) Smoking Status: Never smoker alcohol intake: current substance use type: denies use current occupational status: employed and other Travel in the last 8 weeks: None household members: none
[2022-04-01 22:34] LABS: Eosinophils % 3 % (0-3); Lymphocytes % 14 % (10-50); Monocytes % 3 % (2-9); Neutrophils % 80 % (42-76); Platelet Estimate Normal; RBC Morphology Normal; Total Cells Counted 100
[2022-04-01 22:43] LABS: Anion Gap 17.6 mEq/L (5-15); Chloride 101 mmol/L (98-107)
[2022-04-01 22:47] LABS: Adenovirus F 40/41, stool Not Detected (NotDetected); Astrovirus Not Detected (NotDetected); Campylobacter Not Detected (NotDetected); Clostridium Difficile A/B, PCR Not Detected (NotDetected); Cryptosporidium Not Detected (NotDetected); Cyclospora Cayetanesis Not Detected (NotDetected); Entamoeba histolytica Not Detected (NotDetected); Enteroaggregative E coli Not Detected (NotDetected); Enteropathogenic E coli Not Detected (NotDetected); Enterotoxigenic E coli Not Detected (NotDetected); Giardia lamblia Not Detected (NotDetected); Plesimonas Shigalloides, PCR Not Detected (NotDetected); Rotavirus A Not Detected (NotDetected); Salmonella, PCR Not Detected (NotDetected); Sapovirus Not Detected (NotDetected); Shiga-like toxin E coli Not Detected (NotDetected); Shigella Enterovasive E coli Not Detected (NotDetected); Vibrio Cholerae Not Detected (NotDetected); Vibrio, PCR Not Detected (NotDetected); Yersinia Entercolitica, PCR Not Detected (NotDetected)
[2022-04-01 23:06] LABS: Erythrocyte Sedimentation Rate 1 mm/hr (0-20)
[2022-04-02 01:30] LABS: Norovirus Detected (NotDetected)
--- NOTE | 2022-04-02 01:30 | PC.NURSE ---
notified daniele of norovirus detected on diarrhea panel
[2022-04-02 01:50] VITALS: BP 125/74; PULSE 89; RESP 16; TEMP 37.1; O2SAT 98
== END 2022-04-02 01:51 | disposition home or self-care (01) ==
PROVIDERS: Emergency Provider Emergency Medicine; PCP Internal Medicine Adolescent Medicine
DX: R11.2 Nausea with vomiting, unspecified (principal); R19.7 Diarrhea, unspecified; R55 Syncope and collapse; R10.9 Unspecified abdominal pain; Z20.822 Contact with and (suspected) exposure to COVID-19; I10 Essential (primary) hypertension; E03.9 Hypothyroidism, unspecified; K58.9 Irritable bowel syndrome, unspecified; F32.A Depression, unspecified; F41.9 Anxiety disorder, unspecified; Z79.1 Long term (current) use of non-steroidal anti-inflammatories (NSAID); Z79.51 Long term (current) use of inhaled steroids; Z79.899 Other long term (current) drug therapy; Z82.49 Family history of ischemic heart disease and other diseases of the circulatory system; Z83.3 Family history of diabetes mellitus
CPT/HCPCS: 80053; 81001; 81025; 84145; 85007; 85025; 85651; 86140; 87507; 96361; 96374; 96375; 99284; C9803; U0003; U0005

== ENCOUNTER → 2022-05-29 15:31 | Outpatient (CLI) | payer OTHER, SELFPAY ==
[2022-05-29 17:10] LABS: Basophils # 0.1 K/mm3 (0-0.2); Basophils % 1.5 % (0.1-2.0); Eosinophils # 0.2 K/mm3 (0.0-0.4); Eosinophils % 2.8 % (0.1-12.0); Hematocrit 41.1 % (37.0-47.0); Hemoglobin 13.6 g/dL (12.2-16.2); Lymphocytes # 1.8 K/mm3 (0.7-4.5); Lymphocytes % 27.1 % (10-50); Mean Corpuscular HGB Conc 33.2 g/dL (31.8-35.4); Mean Corpuscular Hemoglobin 29.3 pg (27.0-31.2); Mean Corpuscular Volume 88.2 fl (81-99); Mean Platelet Volume 8.9 fl (7.4-10.4); Monocytes # 0.4 K/mm3 (0.1-1.0); Monocytes % 5.6 % (1.7-9.3); Neutrophils # 4.2 K/mm3 (1.8-7.8); Platelet Count 258 K/mm3 (142-424); Red Blood Count 4.66 M/mm3 (4.20-5.40); Red Cell Distribution Width 13.6 % (11.5-17.5); White Blood Count 6.7 K/mm3 (4.8-10.8)
[2022-05-29 18:15] LABS: Alanine Aminotransferase 31 U/L (12-78); Albumin Level 4.9 g/dl (3.5-5.0); Albumin/Globulin Ratio 1.9 (1.1-1.8); Alkaline Phosphatase 71 U/L (38-126); Anion Gap 14.1 mEq/L (5-15); Aspartate Amino Transferase 27 U/L (14-36); Bilirubin,Total 0.4 mg/dl (0.2-1.3); Blood Urea Nitrogen 9 mg/dl (7-17); Calcium 9.3 mg/dl (8.4-10.2); Carbon Dioxide 23 mmol/L (22.0-30.0); Chloride 108 mmol/L (98-107); Chol/HDL Ratio 4.5 (1-3.5); Cholesterol 174 mg/dl (140-200); Estimated Glomerular Filt Rate 152 ml/min (>60); GFR (African American) 183 ML/MIN (>60); Globulin 2.6 g/dL (1.3-3.2); Glucose 78 mg/dl (74-100); HDL Cholesterol 39 mg/dl (40-60); Potassium 4.1 mmoL/L (3.5-5.1); Sodium 141 mmol/L (136-145); Total Protein,Serum 7.5 g/dl (6.3-8.2); Triglycerides 307 mg/dl (30-150); VLDL Cholesterol 61 mg/dL (0-40)
[2022-05-29 18:25] LABS: Direct LDL Cholesterol 90.65 mg/dL (100-129)
[2022-05-29 18:31] LABS: Free Thyroxine Index 2.1 ug/dL (5.93-13.13); T4 (Thyroxine) 6.6 ug/dl (5.53-11.0); Triiodothryronine (T3) Uptake 32 % (23.5-40.5)
[2022-05-29 18:44] LABS: Thyroid Stimulating Hormone 2.37 uIU/mL (0.465-4.68)
== END ==
PROVIDERS: PCP Nurse Practitioner Family; Visit Provider Nurse Practitioner Family
DX: Z00.00 Encounter for general adult medical examination without abnormal findings (principal); I10 Essential (primary) hypertension; Z79.899 Other long term (current) drug therapy
CPT/HCPCS: 36415; 80053; 80061; 83036; 84436; 84443; 84479; 85025

== ENCOUNTER → 2022-07-09 09:30 | Outpatient (CLI) | payer OTHER, SELFPAY ==
--- NOTE | 2022-07-09 09:30 | US_ITS ---
FINAL REPORT TECHNIQUE: Sonographic images of the pelvis were obtained transvaginally. CLINICAL HISTORY: pain with iud FINDINGS: The uterus is anteverted and anteflexed. It measures 6.0 x 4.8 x 3.8 center. The endometrial stripe measures 7 mm. An IUD is present within the endometrial cavity. The myometrium is homogeneous. A nabothian cyst is seen within the cervix, it is otherwise unremarkable. The right ovary measures 2.4 x 2.2 x 1.6 cm. It is normal in appearance. The left ovary measures 2.5 x 2.3 x 2.3. It is normal in appearance. Color imaging to the ovaries is within normal limits. There is no free fluid. IMPRESSION: 1. Normal sonographic appearance to the uterus and ovaries for age. 2. IUD is present within the endometrial cavity. Reviewed, Interpreted and Dictated by Kandy Wilson MD Transcribed by Sherrie Spencer Authenticated and . [facility]
== END ==
PROVIDERS: PCP Nurse Practitioner Family; Visit Provider Obstetrics & Gynecology
DX: Z97.5 Presence of (intrauterine) contraceptive device (principal)
CPT/HCPCS: 76830

== ENCOUNTER → 2022-11-01 17:11 | Outpatient (CLI) | payer OTHER, SELFPAY | PROVIDERS: PCP Nurse Practitioner Family; Visit Provider Nurse Practitioner Family | DX: R30.0 Dysuria (principal) | CPT/HCPCS: 87086 ==

== ENCOUNTER 2023-04-17 15:32 | Outpatient (CLI) | payer OTHER, SELFPAY ==
--- NOTE | 2023-04-17 15:40 | XR_ITS ---
FINAL REPORT CLINICAL HISTORY: right foot injury COMPARISON: 01/17/2020 FINDINGS: RIGHT FOOT: Three views of the right foot were obtained. There is no acute fracture or dislocation. The joint spaces are intact. There is no soft tissue abnormality. IMPRESSION: No acute bony abnormality. Reviewed, Interpreted and Dictated by Adalid Singh III, MD Transcribed by Pilar Palomo Authenticated and [facility]
== END 2023-04-17 23:59 ==
LOC: RAD 15:33
PROVIDERS: PCP Nurse Practitioner Family; Visit Provider Nurse Practitioner Family
DX: M79.671 Pain in right foot (principal); S99.921A Unspecified injury of right foot, initial encounter
CPT/HCPCS: 73630

== ENCOUNTER 2023-04-23 00:07 | Emergency (ER) | payer OTHER, SELFPAY ==
[2023-04-23 00:09] VITALS: BP 159/110; PULSE 85; RESP 18; TEMP 36.6; O2SAT 98; BMI 42.6
--- NOTE | 2023-04-23 00:24 | ED_ITS ---
Discharge Plan Disposition Patient Disposition: Home, Self-Care Prescriptions Prescriptions: No Action montelukast 10 mg tablet 10 mg PO DAILY PRN ipratropium bromide 21 mcg (0.03 %) spray,non-aerosol 2 spray intranasal BID PRN Rx Instructions: administer into each nostril Vraylar 1.5 mg capsule 1.5 mg PO DAILY Qty: 30 2RF pseudoephedrine HCl [Sudafed 12 Hour] 120 mg tablet extended release 120 mg PO Q12H PRN (Reason: nasal congestion) Qty: 20 3RF dicyclomine 10 mg capsule See Rx Instructions .ROUTE .COMPLEX Qty: 360 2RF Dose Instruction: TAKE 2 CAP(S) ORALLY 4 TIMES A DAY Rx Instructions: TAKE 2 CAP(S) ORALLY 4 TIMES A DAY buspirone 10 mg tablet See Rx Instructions .ROUTE .COMPLEX Qty: 180 0RF Dose Instruction: TAKE 1 TABLET BY MOUTH TWICE DAILY Rx Instructions: TAKE 1 TABLET BY MOUTH TWICE DAILY propranolol 20 mg tablet See Rx Instructions .ROUTE .COMPLEX Qty: 180 0RF Dose Instruction: TAKE 1 TABLET BY MOUTH TWICE A DAY FOR HYPERTENSION FOR 90 DAYS Rx Instructions: TAKE 1 TABLET BY MOUTH TWICE A DAY FOR HYPERTENSION FOR 90 DAYS bupropion HCl [Wellbutrin XL] 300 mg tablet extended release 24 hr 300 mg PO DAILY Qty: 30 1RF Hold Instructions: Home Medication placed on hold at Doctor's office sertraline 50 mg tablet 150 mg PO DAILY 30 Days Qty: 90 1RF cetirizine 10 mg tablet 10 mg PO DAILY 90 Days Qty: 90 0RF allopurinol 300 mg tablet 300 mg PO DAILY 90 Days Qty: 90 0RF levothyroxine 50 mcg tablet 50 mcg PO DAILY 90 Days Qty: 90 0RF fluticasone propionate 120 SPR/BOT bottle 2 spr NS DAILY Qty: 1 0RF Referrals Follow up/Referrals: Cecily Rayo APRN [Primary Care Provider] - See instructions Activity Restrictions/Add. Instructions Additional Instructions/Restrictions: Please follow-up with your primary care provider. Please return to the emergency department if you develop any new or worsening symptoms or become concerned for your health. Clinical Impressions Clinical Impression: Enteritis, Abdominal pain Instructions Patient Instructions: DI for Acute Abdominal Pain Discharge ED Provider: Iván Moya Adult [facility] General Chief complaint: Abdominal Pain Stated complaint: Abdominal Pain,nausea Time Seen by Provider: 04/23/23 00:22 History of Present Illness HPI narrative: 27-year-old female, history of anxiety depression hypertension hypothyroidism presents with 1 day of worsening epigastric and left upper quadrant pain as well as nausea. Reports symptoms were worse with eating. Reports that symptoms comes in waves. Patient reports she has been having some watery diarrhea for the last couple of days as well. She reports no fever at home. She reports she cannot be because she had her IUD removed very recently. Reports no history of intra-abdominal surgery or significant pathology. Denies any urinary symptoms. Related Data Home Medications Medication Instructions Recorded Confirmed ipratropium bromide 21 mcg (0.03 2 spray intranasal BID PRN 02/18/22 04/22/23 %) nasal spray montelukast 10 mg tablet 10 mg PO DAILY PRN 02/18/22 04/22/23 Previous Rx's Medication Instructions Recorded fluticasone propionate 50 2 spr intranasal DAILY ##1 07/06/17 mcg/actuation nasal spray,suspension dicyclomine 10 mg capsule See Rx Instructions .Route 08/19/22 .COMPLEX #360 caps buspirone 10 mg tablet See Rx Instructions .Route 12/13/22 .COMPLEX #180 tabs propranolol 20 mg tablet See Rx Instructions .Route 01/08/23 .COMPLEX #180 tabs bupropion HCl 300 mg 24 hr tablet, 300 mg PO DAILY #30 tabs 01/28/23 extended release (Wellbutrin XL) sertraline 50 mg tablet 150 mg PO DAILY 30 days #90 tabs 03/17/23 allopurinol 300 mg tablet 300 mg PO DAILY 90 days #90 tabs 04/10/23 cetirizine 10 mg tablet 10 mg PO DAILY 90 days #90 tabs 04/10/23 levothyroxine 50 mcg tablet 50 mcg PO DAILY 90 days #90 tabs 04/10/23 cariprazine 1.5 mg capsule 1.5 mg PO DAILY #30 caps 04/16/23 (Vraylar) pseudoephedrine HCl 120 mg 120 mg PO Q12H PRN nasal 04/22/23 tablet,extended release (Sudafed congestion #20 tabs 12 Hour) Allergies Allergy/AdvReac Type Severity Reaction Status Date / Time No Known Allergies Allergy Verified 04/22/23 14:36 [facility] Disclaimer: The information contained in this section may have been updated after the patient was seen, as this information can be updated by other users. Medical History Anxiety Depression Generalized anxiety disorder Hypertension Hypothyroidism IBS (irritable bowel syndrome) Major depressive disorder Seasonal allergies Surgical History No history of previous surgery Family History Father Diabetes Hypertension Thyroid disorder Mother FHx: mental illness depression Liver disease Social History Smoking Status: Never smoker second hand exposure: Yes (her mom does) alcohol intake: current counseling given: No substance use type: denies use counseling given: No current occupational status: employed and other Travel in the last 8 weeks: None adopted: No caregiver/support person: No foster care: No household members: family and none housing: house lives independently: Yes marital status: single number of children: 0 number of grandchildren: 0 education level: college alf: No current occupation: respiratory therapist Hx Recent Travel: No caffeine: Yes physical activity: none working smoke detector in home: Yes fire extinguisher in home: No carbon monox detector in home: Yes firearms in home: Yes firearms unloaded and locked: Yes (they are unloaded; not locked up) do you feel safe at home: Yes victim of physical abuse: No victim of emotional abuse: No victim of sexual abuse: No would you like helpful sources: No ROS Obtained: Yes All systems reviewed & no additional complaints except as documented Physical Exam General General appearance: alert Comment: Uncomfortable appearing Head Head exam: atraumatic and normocephalic Eye Eye exam: Present normal appearance, PERRL and EOMI ENT ENT exam: Present normal oropharynx and normal external ear exam Neck Neck exam: Present normal inspection and full ROM Chest Chest inspection: Present normal inspection and symmetric chest wall rise; Absent tenderness Respiratory Respiratory exam: Present normal lung sounds bilaterally; Absent respiratory distress Cardiovascular Cardiovascular exam: Present regular rate and normal rhythm Abdominal Exam Abdominal exam: Present soft and tenderness (Mild, epigastric, left upper quadrant); Absent distention or guarding Extremities Exam Extremities exam: Present normal inspection; Absent edema or joint swelling Back Exam Back exam: Present normal inspection; Absent tenderness Neurological Exam Neurological exam: Present alert and oriented X3; Absent motor sensory deficit Psychiatric Psychiatric exam: Present normal affect and normal mood Skin Skin exam: Present warm, dry and normal color Lymphatic Lymphatic Findings: no adenopathy Medical Decision Making Medical Records Medical records reviewed: Yes I reviewed the patient's medical records. Alfredo Inquiry Pt receiving controlled substance: No Alfredo was queried for this patient: No Vital Signs: 04/23/23 00:09 04/23/23 01:30 04/23/23 03:06 Temperature 97.9 F 97.9 F Temperature Source Oral Oral Pulse Rate 78 82 Pulse Rate [Left] 85 Respiratory Rate 18 18 Blood Pressure 136/90 146/74 H Blood Pressure [Right Arm] 159/110 H Blood Pressure Mean [Right Arm] 126 Blood Pressure Source Automatic Cuff Blood Pressure Source [Right Arm] Automatic Cuff Blood Pressure Position Sitting Blood Pressure Position [Right Arm] Sitting 02 Sat by Pulse Oximetry 98 97 Oxygen Delivery Method Room Air Room Air Room Air Lab Data Lab results reviewed: Yes I reviewed the patient's lab results. Lab Results 04/23/23 00:20: WBC 7.0, RBC 4.77, Hgb 14.1, Hct 40.7, MCV 85.2, MCH 29.5, MCHC 34.6, RDW 13.7, Plt Count 169, MPV 10.0, Neut % (Auto) 79.1, Lymph % (Auto) 10.8, [place] % (Auto) 6.8, Eos % (Auto) 2.7, Baso % (Auto) 0.7, Neut # (Auto) 5.5, Lymph # (Auto) 0.8, [place] # (Auto) 0.5, Eos # (Auto) 0.2, Baso # (Auto) 0.1, S odium 137, Potassium 4.0, Chloride 109 H, Carbon Dioxide 17 L, Anion Gap 15.0, BUN 11, Creatinine 0.50 L, Estimated Creat Clear 161, Estimated GFR 150, Est GFR ( Amer) 182, Glucose 113 H, Calcium 8.8, Magnesium 1.8, Total Bilirubin 0.5, AST 33, ALT 33, Alkaline Phosphatase 65, Total Protein 7.5, Albumin 4.5, Globulin 3.0, Albumin/Globulin Ratio 1.5, Lipase 68, Serum HCG, Qual Negative 04/23/23 00:23: SARS-CoV-2 (PCR) Not detected, Influenza A Untype (PCR) Not detected, Influenza Type B (PCR) Not detected 04/23/23 00:20 04/23/23 00:20 Orders (Tests/Meds): ED MEDICATIONS Discontinued Medications Generic Name Dose Route Start Last Admin Trade Name Freq PRN Reason Stop Dose Admin Acetaminophen 1,000 mg 04/23/23 00:23 04/23/23 00:45 Acetaminophen 500mg Tab PO 04/23/23 00:24 1,000 mg ONCE ONE Administration Belladonna Alkaloids 60 ml 04/23/23 00:23 04/23/23 00:45 Belladonna Alkaloids 60 Ml Ml PO 04/23/23 00:24 60 ml ONCE ONE Administration Lactated Ringer's 1,000 mls @ 999 mls/hr 04/23/23 00:30 04/23/23 00:45 Lactated Ringer's 1000 Ml Bag IV 04/23/23 01:30 999 mls/hr .Q1H1M VIJAYA Administration Iopamidol 75 ml 04/23/23 02:04 04/23/23 02:06 Iopamidol-370 (76%);100ml Bottle IV 04/23/23 02:05 75 ml ONCE ONE Administration Ketorolac Tromethamine 30 mg 04/23/23 00:23 04/23/23 00:45 Ketorolac 30mg/Ml Vial IV 04/23/23 00:24 30 mg ONCE ONE Administration Morphine Sulfate 4 mg 04/23/23 01:40 04/23/23 01:44 Morphine 4mg/Ml Syringe IV 04/23/23 01:41 4 mg ONCE ONE Administration Ondansetron HCl 4 mg 04/23/23 00:23 04/23/23 00:45 Ondansetron 4mg/2ml Vial IV 04/23/23 00:24 4 mg ONCE ONE Administration Sodium Chloride 10 ml 04/23/23 02:04 04/23/23 02:06 Sodium Chloride 0.9% 10ml Syr (Rad Only) IV 05/23/23 02:03 10 ml NEEDED PRN Administration Maintain IV Site ORDERS Category Date Time Status CT abdomen pelvis w con Stat Cat Scan 04/23/23 01:40 Completed CBC w/Auto Diff [Complete Blood Count Auto Diff] Stat Lab 04/23/23 00:20 Completed CMP [Comprehensive Metabolic Panel] Stat Lab 04/23/23 00:20 Completed HCG Qualitative, Serum Stat Lab 04/23/23 00:20 Completed Lipase Stat Lab 04/23/23 00:20 Completed Magnesium Stat Lab 04/23/23 00:20 Completed Rapid PCR Covid and Flu A/B Stat Lab 04/23/23 00:23 Completed Medical Decision Narrative: 27-year-old female, history as reported above, presents with 1 day of worsening nausea, epigastric and left upper quadrant pain as well as some watery diarrhea. History was obtained via conversation with patient, chart review. On arrival, patient is [afebrile, hemodynamically stable, satting appropriately, alert, oriented x4, GCS 15], moving all extremities spontaneously. Full physical exam performed and significant for mild epigastric and left upper quadrant tenderness. Differential includes but is not limited to gastroenteritis, flu, pancreatitis, cholecystitis, diverticulitis. Patient was given 1 L fluid bolus, p.o. Tylenol, IV Toradol, IV Zofran for symptomatic management and correction of underlying abnormalities. Workup init iated including CBC CMP lipase COVID flu swab , CT Abdo pelvis IV contrast On re-evaluation, patient reports persistent pain. Given IV morphine. Laboratory workup independently interpreted by me and significant for normal white count, normal renal function, lipase within normal limits. COVID and flu swab negative.. Imaging independently interpreted by me and significant for findings consistent with enteritis and diarrheal illness given fluid-filled small and large bowel without evidence of obstruction. No evidence of pancreatitis or cholecystitis. See radiology read for full review of final results. Given patient history, exam and workup, patient's presentation most likely represents developing gastroenteritis. These findings were communicated to patient. She was discharged in stable conditions with instructions regarding symptomatic care at home. Return precautions given. Procedures Risk/Benefits of Procedure(s) Were Explained: Yes Critical Care Critical Care Time Critical Care Time: No
[2023-04-23] MEDS: LACTATED RINGERS 1000ML 1,000 ML 999 ML IV (00:45)
[2023-04-23] MEDS: KETOROLAC 30MG/ML VIAL 30 MG IV (00:45)
[2023-04-23] MEDS: BELLADONNA ALKALOIDS 60 ML ML PO (00:45)
[2023-04-23] MEDS: ACETAMINOPHEN 500MG TAB 1000 MG PO (00:45)
[2023-04-23] MEDS: ONDANSETRON 4MG/2ML VIAL 4 MG IV (00:45)
[2023-04-23 00:48] LABS: Chloride 109 mmol/L (98-107); HCG Qualitative, Serum Negative (Negative)
[2023-04-23 00:49] LABS: Basophils # 0.1 K/mm3 (0-0.2); Basophils % 0.7 % (0.1-2.0); Eosinophils # 0.2 K/mm3 (0.0-0.4); Eosinophils % 2.7 % (0.1-12.0); Hematocrit 40.7 % (37.0-47.0); Hemoglobin 14.1 g/dL (12.2-16.2); Lymphocytes # 0.8 K/mm3 (0.7-4.5); Lymphocytes % 10.8 % (10-50); Mean Corpuscular HGB Conc 34.6 g/dL (31.8-35.4); Mean Corpuscular Hemoglobin 29.5 pg (27.0-31.2); Mean Corpuscular Volume 85.2 fl (81-99); Monocytes # 0.5 K/mm3 (0.1-1.0); Monocytes % 6.8 % (1.7-9.3); Neutrophils # 5.5 K/mm3 (1.8-7.8); Neutrophils % 79.1 % (37.0-80.0); Platelet Count 169 K/mm3 (142-424); Red Blood Count 4.77 M/mm3 (4.20-5.40); Red Cell Distribution Width 13.7 % (11.5-17.5); Sodium 137 mmol/L (136-145)
[2023-04-23 00:51] LABS: Alanine Aminotransferase 33 U/L (12-78); Alkaline Phosphatase 65 U/L (38-126); Aspartate Amino Transferase 33 U/L (14-36); Bilirubin,Total 0.5 mg/dl (0.2-1.3); Blood Urea Nitrogen 11 mg/dl (7-17); Creatinine Clearance Estimated 161 mL/min (50-200); Estimated Glomerular Filt Rate 150 ml/min (>60); GFR (African American) 182 ML/MIN (>60)
[2023-04-23 00:52] LABS: Albumin Level 4.5 g/dl (3.5-5.0); Albumin/Globulin Ratio 1.5 (1.1-1.8); Calcium 8.8 mg/dl (8.4-10.2); Carbon Dioxide 17 mmol/L (22.0-30.0); Glucose 113 mg/dl (74-100); Magnesium 1.8 mg/dl (1.6-2.3); Total Protein,Serum 7.5 g/dl (6.3-8.2)
[2023-04-23 01:30] VITALS: BP 136/90; PULSE 78; O2SAT 97
--- NOTE | 2023-04-23 01:40 | CT_ITS ---
PROCEDURE INFORMATION: Exam: CT Abdomen And Pelvis With Contrast Exam date and time: 04/23/2023 1:50 AM Age: 27 years old Clinical indication: Abdominal pain; Additional info: Epigastric and left sided abd pain TECHNIQUE: Imaging protocol: Computed tomography of the abdomen and pelvis with contrast. Radiation optimization: All CT scans at this facility use at least one of these dose optimization techniques: automated exposure control; mA and/or kV adjustment per patient size (includes targeted exams where dose is matched to clinical indication); or iterative reconstruction. Contrast material: ISOVUE; Contrast volume: 75 ml; Contrast route: IV; COMPARISON: CT ABDOMEN PELVIS WO CON 03/26/2019 12:50 PM FINDINGS: Lungs: No acute finding. Liver: Mild hepatic steatosis is evident. Gallbladder and bile ducts: Normal. No calcified stones. No ductal dilation. Pancreas: Normal. No ductal dilation. Spleen: Normal. No splenomegaly. Adrenal glands: Normal. No mass. Kidneys and ureters: There are solitary punctate calcifications within each kidney. The kidneys demonstrate symmetric unobstructed function. Stomach and bowel: There are a few fluid distended loops of distal small bowel. There is fluid and air distention throughout the colon. No mucosal thickening. No obstruction.. Appendix: No evidence of appendicitis. The appendix is not identified as a discrete structure however, there is no inflammatory process in the region of the cecum. Intraperitoneal space: Unremarkable. No free air. No significant fluid collection. Vasculature: Unremarkable. No abdominal aortic aneurysm. Lymph nodes: Unremarkable. No enlarged lymph nodes. Urinary bladder: Unremarkable as visualized. Reproductive: Unremarkable as visualized. Bones/joints: Mild degenerative disc disease of the lower thoracic spine. No acute fracture. Soft tissues: Unremarkable. IMPRESSION: 1. There are few fluid-filled loops of distal small bowel with air and fluid distended colon noted. The findings are nonspecific but may represent enteritis. No mucosal abnormality or obstruction is evident. 2. Solitary nonobstructing small bilateral intrarenal calculi. 3. Mild hepatic steatosis.
[2023-04-23] MEDS: MORPHINE 4MG/ML SYRINGE 4 MG IV (01:44)
[2023-04-23 02:06] LABS: Coronavirus 19, PCR Not Detected (NotDetected); Influenza A, PCR Not Detected (NotDetected); Influenza B, PCR Not Detected (NotDetected)
[2023-04-23] MEDS: IOPAMIDOL-370 (76%);100ML BOTTLE 75 ML IV (02:06)
[2023-04-23] MEDS: SODIUM CHLORIDE 0.9% 10ML SYR (RAD ONLY) 10 ML IV (02:06)
--- NOTE | 2023-04-23 02:12 | PC.NURSE ---
I called the lab and spoke to Vanita fenton MD to inquire how much longer it would be for the lipase.
[2023-04-23 02:49] LABS: Lipase 68 U/L (23-300)
[2023-04-23 03:06] VITALS: BP 146/74; PULSE 82; RESP 18; TEMP 36.6; O2SAT 97
== END 2023-04-23 03:07 | disposition home or self-care (01) ==
PROVIDERS: Emergency Provider Emergency Medicine; PCP Nurse Practitioner Family
DX: K52.9 Noninfective gastroenteritis and colitis, unspecified (principal); R10.13 Epigastric pain; R10.12 Left upper quadrant pain; I10 Essential (primary) hypertension; E03.9 Hypothyroidism, unspecified
CPT/HCPCS: 74177; 80053; 83690; 83735; 84703; 85025; 87636; 96361; 96374; 96375; 99285; J2405; Q9967

== ENCOUNTER 2023-05-07 15:45 | Outpatient (CLI) | payer OTHER, SELFPAY ==
[2023-05-07 16:30] LABS: Basophils # 0.1 K/mm3 (0-0.2); Basophils % 1.1 % (0.1-2.0); Eosinophils # 0.1 K/mm3 (0.0-0.4); Eosinophils % 2.4 % (0.1-12.0); Hematocrit 41.1 % (37.0-47.0); Hemoglobin 13.9 g/dL (12.2-16.2); Lymphocytes # 1.6 K/mm3 (0.7-4.5); Lymphocytes % 27.1 % (10-50); Mean Corpuscular HGB Conc 33.9 g/dL (31.8-35.4); Mean Corpuscular Hemoglobin 29.5 pg (27.0-31.2); Mean Platelet Volume 8.9 fl (7.4-10.4); Monocytes # 0.3 K/mm3 (0.1-1.0); Monocytes % 4.3 % (1.7-9.3); Neutrophils # 3.9 K/mm3 (1.8-7.8); Neutrophils % 65.2 % (37.0-80.0); Platelet Count 263 K/mm3 (142-424); Red Blood Count 4.73 M/mm3 (4.20-5.40); Red Cell Distribution Width 13.7 % (11.5-17.5); White Blood Count 5.9 K/mm3 (4.8-10.8)
[2023-05-07 17:05] LABS: Chloride 108 mmol/L (98-107); Sodium 139 mmol/L (136-145)
[2023-05-07 17:06] LABS: Potassium 4.4 mmoL/L (3.5-5.1)
[2023-05-07 17:08] LABS: Alanine Aminotransferase 38 U/L (12-78); Albumin Level 4.3 g/dl (3.5-5.0); Albumin/Globulin Ratio 1.7 (1.1-1.8); Alkaline Phosphatase 69 U/L (38-126); Anion Gap 12.4 mEq/L (5-15); Aspartate Amino Transferase 32 U/L (14-36); Bilirubin,Total 0.5 mg/dl (0.2-1.3); Blood Urea Nitrogen 7 mg/dl (7-17); Carbon Dioxide 23 mmol/L (22.0-30.0); Estimated Glomerular Filt Rate 150 ml/min (>60); GFR (African American) 182 ML/MIN (>60); Globulin 2.6 g/dL (1.3-3.2); Total Protein,Serum 6.9 g/dl (6.3-8.2)
[2023-05-07 17:09] LABS: Glucose 82 mg/dl (74-100)
[2023-05-07 17:26] LABS: 25-OH Vitamin D, Total 16.3 ng/mL (30-100)
[2023-05-07 17:43] LABS: Thyroid Stimulating Hormone 1.24 uIU/mL (0.465-4.68)
== END 2023-05-07 23:59 ==
LOC: LAB 15:45
PROVIDERS: PCP Nurse Practitioner Family; Visit Provider Nurse Practitioner Family
DX: I10 Essential (primary) hypertension (principal); E03.9 Hypothyroidism, unspecified; E55.9 Vitamin D deficiency, unspecified; Z68.41 Body mass index [BMI] 40.0-44.9, adult; Z87.891 Personal history of nicotine dependence
CPT/HCPCS: 36415; 80053; 82306; 84443; 85025

== ENCOUNTER 2023-05-29 16:03 | Outpatient (CLI) | payer OTHER, SELFPAY ==
[2023-05-29 17:12] LABS: Chol/HDL Ratio 4.6 (1-3.5); Cholesterol 188 mg/dl (140-200); HDL Cholesterol 41 mg/dl (40-60); Triglycerides 204 mg/dl (30-150); VLDL Cholesterol 41 mg/dL (0-40)
[2023-05-29 17:23] LABS: Direct LDL Cholesterol 93.93 mg/dL (100-129)
[2023-05-29 22:36] LABS: Hemoglobin A1C 5.1 % (4.0-6.0)
[2023-05-30 11:13] LABS: Insulin Level Total 23.3 uIU/mL (2.6-24.9)
== END 2023-05-29 23:59 ==
LOC: LAB 16:04
PROVIDERS: PCP Nurse Practitioner Family; Visit Provider Nurse Practitioner Family
DX: E88.810 Metabolic syndrome (principal)
CPT/HCPCS: 36415; 80061; 83036; 83525

== ENCOUNTER 2023-08-21 15:15 | Outpatient (CLI) | payer OTHER, SELFPAY ==
--- NOTE | 2023-08-21 15:27 | XR_ITS ---
FINAL REPORT CLINICAL HISTORY: left knee pain COMPARISON: None FINDINGS: LEFT KNEE: Three views of the left knee were obtained. There is no acute fracture or dislocation. Visualized joint spaces are normally aligned. There is no joint effusion. Soft tissues are unremarkable. IMPRESSION: No acute bony abnormality. Reviewed, Interpreted and Dictated by Adalid Singh III, MD Transcribed by Alberta Damon Authenticated and [facility]
== END 2023-08-21 23:59 | disposition home or self-care (01) ==
LOC: RAD 15:16
PROVIDERS: PCP Nurse Practitioner Family; Visit Provider Nurse Practitioner Family
DX: M25.562 Pain in left knee (principal)
CPT/HCPCS: 73562

== ENCOUNTER → 2024-02-09 06:20 | Outpatient (CLI) | payer OTHER, SELFPAY | LOC: SL 02-11 06:21 | PROVIDERS: PCP Family Medicine; Visit Provider Family Medicine | DX: R53.83 Other fatigue (principal); E66.01 Morbid (severe) obesity due to excess calories; Z68.41 Body mass index [BMI] 40.0-44.9, adult | CPT/HCPCS: 95806 ==

== ENCOUNTER 2024-12-02 15:45 | Outpatient (CLI) | payer OTHER, SELFPAY ==
[2024-12-02 16:46] LABS: Hematocrit 36.7 % (37.0-47.0); Hemoglobin 12.1 g/dL (12.2-16.2); Immature Granulocytes % 0.4 %; Mean Corpuscular HGB Conc 33.0 g/dL (31.8-35.4); Mean Corpuscular Hemoglobin 28.2 pg (27.0-31.2); Mean Corpuscular Volume 85.5 fl (81-99); Nucleated Red Blood Cells % 0 %; Platelet Count 243 K/mm3 (142-424); Red Blood Count 4.29 M/mm3 (4.20-5.40); Red Cell Distribution Width-SD 39.8 fL; White Blood Count 7.2 K/mm3 (4.8-10.8)
[2024-12-02 18:00] LABS: Hemoglobin A1C 5.3 % (4.0-6.0)
[2024-12-02 18:41] LABS: Alanine Aminotransferase 30 U/L (12-78); Albumin Level 4.4 g/dl (3.5-5.0); Albumin/Globulin Ratio 1.6 (1.1-1.8); Alkaline Phosphatase 74 U/L (38-126); Anion Gap 14.1 mEq/L (5-15); Aspartate Amino Transferase 24 U/L (14-36); Blood Urea Nitrogen 9 mg/dl (7-17); Calcium 9.5 mg/dl (8.4-10.2); Carbon Dioxide 23 mmol/L (22.0-30.0); Chloride 108 mmol/L (98-107); Cholesterol 188 mg/dl (140-200); Creatinine,Serum 0.70 mg/dl (0.52-1.04); Estimated Glomerular Filt Rate 100 ml/min (>60); GFR (African American) 121 ML/MIN (>60); Globulin 2.7 g/dL (1.3-3.2); Glucose 80 mg/dl (74-100); HDL Cholesterol 51 mg/dl (40-60); Magnesium 1.6 mg/dl (1.6-2.3); Potassium 4.1 mmoL/L (3.5-5.1); Sodium 141 mmol/L (136-145); Total Protein,Serum 7.1 g/dl (6.3-8.2); Triglycerides 177 mg/dl (30-150)
[2024-12-02 18:53] LABS: Bilirubin,Total 0.1 mg/dl (0.2-1.3)
[2024-12-02 18:58] LABS: 25-OH Vitamin D, Total 14.3 ng/mL (30-100)
[2024-12-02 19:12] LABS: Thyroid Stimulating Hormone 2.09 uIU/mL (0.465-4.68)
[2024-12-04 04:23] LABS: FSH 5.3 mIU/mL (.); LH 5.2 mIU/mL (.); Testosterone,Total 32 ng/dL (13-71)
[2024-12-04 05:09] LABS: Insulin Level Total 27.5 uIU/mL (2.6-24.9)
== END 2024-12-02 23:59 | disposition home or self-care (01) ==
LOC: LAB 15:46
PROVIDERS: PCP Family Medicine; Visit Provider Obstetrics & Gynecology
DX: Z00.00 Encounter for general adult medical examination without abnormal findings (principal)
CPT/HCPCS: 36415; 80053; 80061; 82306; 82670; 83001; 83002; 83036; 83525; 83735; 84144; 84403; 84443; 85025

== ENCOUNTER 2025-03-11 15:44 | Outpatient (CLI) | payer OTHER, SELFPAY ==
[2025-03-13 09:39] LABS: Insulin Level Total 26.4 uIU/mL (2.6-24.9)
[2025-03-20 18:21] LABS: 1,25 Dihydroxy Vitamin D 67 pg/mL (.); 1,25-Dihydroxy, Vitamin D-2 <10 pg/mL (.); 1,25-Dihydroxy, Vitamin D-3 67 pg/mL (.)
== END 2025-03-11 23:59 | disposition home or self-care (01) ==
LOC: LAB 15:44
PROVIDERS: PCP Family Medicine; Visit Provider Obstetrics & Gynecology
DX: E88.810 Metabolic syndrome (principal); E55.9 Vitamin D deficiency, unspecified; Z68.41 Body mass index [BMI] 40.0-44.9, adult
CPT/HCPCS: 36415; 82652; 83525